=== PATIENT | female | born 1995 | race Caucasian/White ===

== ENCOUNTER 2022-06-24 06:58 | Inpatient (IN) | payer MEDICAID ==
[~2022-06-24] VITALS: Ht 162.6 cm; Wt 75.3 kg
[2022-06-24] MEDS ORDERED: FISH GT (07:43)
[2022-06-24] MEDS ORDERED: PREN-176 PO (07:43)
[2022-06-24] MEDS ORDERED: CALC-1042 PO (07:43)
[2022-06-24] MEDS ORDERED: FERR-71 PO (07:43)
[2022-06-24] MEDS ORDERED: METHYLERGONOVINE MALEATE 0.2 MG/ML IM PRN (08:00)
[2022-06-24] MEDS ORDERED: NALOXONE HCL 0.4 MG/ML 1ML VIAL IM PRN (08:00)
[2022-06-24] MEDS ORDERED: BUTORPHANOL TARTRATE 2 MG/ML VIAL IV PRN (08:00)
[2022-06-24] MEDS ORDERED: LIDOCAINE HCL 1% 20ML VIAL (Pyxis) INJ INFIL SCH (08:00)
[2022-06-24] MEDS ORDERED: LACTATED RINGERS 1,000 ML IV SCH (08:00)
[2022-06-24 08:48] LABS: BASOPHILS % 0.2 % (0.0-2.0); CLARITY URINE CLEAR (CLEAR); COLOR URINE YELLOW (YELLOW); EOSINOPHILS % 0.2 % (0.0-5.0); HEMATOCRIT. 35.3 % (36.0-48.0); HEMOGLOBIN. 11.8 g/dL (12.0-16.0); KETONES URINE TRACE (NEGATIVE); LEUKOCYTE ESTERASE URINE NEGATIVE (NEGATIVE); LYMPHOCYTES % 11.3 % (20.0-50.0); MEAN CORPUSCULAR HEMOGLOBIN 29.8 pg (28.0-32.0); MEAN CORPUSCULAR VOLUME 88.9 fL (81.0-99.0); MEAN PLATELET VOLUME 8.3 fl (7.4-10.4); MONOCYTES % 3.9 % (2.0-8.0); NEUTROPHILS % 84.4 % (40.0-76.0); NITRITE URINE NEGATIVE (NEGATIVE); OCCULT BLOOD URINE 2+ (NEGATIVE); PH URINE 7.5 (4.5-8.0); PLATELET 274 x1000/uL (130-400); PROTEIN URINE TRACE (NEGATIVE); RED BLOOD CELL COUNT 3.96 mill/uL (4.2-5.4); RED CELL DISTRIBUTION WIDTH 14.2 % (11.6-14.6); SPECIFIC GRAVITY URINE 1.021 (1.005-1.030); UROBILINOGEN URINE 0.2 E.U./dL (0.2-1.0)
[2022-06-24 08:58] LABS: INR 0.9; PARTIAL THROMBOPLASTIN TIME 27.8 sec (23.4-31.0); PROTHROMBIN TIME 9.7 sec (9.6-11.0)
[2022-06-24 09:01] LABS: *AMPHETAMINES SCREEN URINE NEGATIVE (NEGATIVE); *BARBITURATES SCREEN URINE NEGATIVE (NEGATIVE); *BENZODIAZEPINES SCREEN URINE NEGATIVE (NEGATIVE); *COCAINE SCREEN URINE NEGATIVE (NEGATIVE); CANNABINOID URINE SCREEN NEGATIVE (NEGATIVE); METHADONE URINE SCREEN NEGATIVE (NEGATIVE); OPIATES URINE SCREEN NEGATIVE (NEGATIVE); PHENCYCLIDINE URINE SCREEN NEGATIVE (NEGATIVE)
[2022-06-24 09:31] LABS: HEPATITIS B SURFACE ANTIGEN NEGATIVE
[2022-06-24] MEDS: OXYTOCIN 30 UNITS/500ML NS PMX 500 ML IV SCH ×2 (09:32→10:24)
[2022-06-24] MEDS ORDERED: BENZOCAINE/LANOLIN/ALOE VERA SPRAY TOP PRN (10:15)
[2022-06-24] MEDS ORDERED: IBUPROFEN 800MG TABLET PO PRN (10:15)
[2022-06-24] MEDS ORDERED: IBUPROFEN 400MG TABLET PO PRN (10:15)
[2022-06-24 11:00] VITALS: BP 101/62
[2022-06-24 11:30] VITALS: BP 92/65
[2022-06-24 19:30] VITALS: BP 90/55
[2022-06-24] MEDS: FERROUS SULFATE 325MG TABLET PO SCH (20:00)
[2022-06-25 03:30] VITALS: BP 100/48
[2022-06-25 08:00] VITALS: BP 102/64
[2022-06-25] MEDS: FERROUS SULFATE 325MG TABLET PO SCH (08:14)
[2022-06-25] MEDS ORDERED: PRENATAL VIT/FE FUMARATE/FA TABLET PO SCH (09:00)
[2022-06-25 10:14] LABS: BASOPHILS % 0.2 % (0.0-2.0); EOSINOPHILS % 0.6 % (0.0-5.0); HEMATOCRIT. 32.4 % (36.0-48.0); HEMOGLOBIN. 10.7 g/dL (12.0-16.0); MEAN CORPUSCULAR HEMOGLOBIN 29.7 pg (28.0-32.0); MEAN CORPUSCULAR VOLUME 90.3 fL (81.0-99.0); MEAN PLATELET VOLUME 7.9 fl (7.4-10.4); MONOCYTES % 6.4 % (2.0-8.0); NEUTROPHILS % 73.8 % (40.0-76.0); PLATELET 275 x1000/uL (130-400); RED BLOOD CELL COUNT 3.59 mill/uL (4.2-5.4); RED CELL DISTRIBUTION WIDTH 14.3 % (11.6-14.6)
[2022-06-25 16:00] VITALS: BP 94/54
[2022-06-25 20:32] VITALS: BP 100/59
[2022-06-26 01:16] VITALS: BP 120/57
[2022-06-26] MEDS ORDERED: IBUP-2030 PO (04:25)
[2022-06-26 07:30] VITALS: BP 100/63
== END 2022-06-26 12:00 | disposition home or self-care (01) | DRG 560 ==
LOC: OBSVTOIN 06:58 → 8 EST LDRP 06:58 → INTOOBSV 06:58 → 8EST 10:55
PROVIDERS: ADMIT Obstetrics & Gynecology; ATTEND Obstetrics & Gynecology
PROC: 10E0XZZ Delivery of Products of Conception, External Approach (ICD-10-PCS; principal; 2022-06-24)
PROC: 0HQ9XZZ Repair Perineum Skin, External Approach (ICD-10-PCS; 2022-06-24)
DX: O48.0 Post-term pregnancy (principal); Z37.0 Single live birth; O69.1XX0 Labor and delivery complicated by cord around neck, with compression, not applicable or unspecified; O70.0 First degree perineal laceration during delivery; Z20.822 Contact with and (suspected) exposure to COVID-19; Z3A.39 39 weeks gestation of pregnancy
CPT/HCPCS: 36415; 76805; 80305; 81003; 85025; 86592; 86703; 86762; 86850; 86900; 87340; 87426; 99281; J3490; J2590

== ENCOUNTER 2025-09-05 20:31 | Emergency (ER) | payer MEDICAID, OTHER ==
[~2025-09-05] VITALS: Ht 162.6 cm; Wt 65.0 kg
[~2025-09-05 20:31] MED LIST: CALC-1042 PO; FERR-71 PO; FISH GT; IBUP-2030 PO; PREN-176 PO
[2025-09-05 20:35] VITALS: O2SAT 98
[2025-09-05] MEDS: TETANUS, DIPHTHERIA, PERTUSSIS VAC/PF 0.5ML (>10YR OLD) IM ONE (21:46)
[2025-09-05] MEDS: LIDOCAINE HCL/EPINEPHRINE 1%-EPI 1:100,000 20ML VIAL INFIL ONE (21:47)
[2025-09-05 21:48] VITALS: BP 111/74; PULSE 71; RESP 19; TEMP 36.9; O2SAT 100
== END 2025-09-05 21:59 | disposition home or self-care (01) ==
LOC: ER 20:58
DX: S01.81XA Laceration without foreign body of other part of head, initial encounter (principal); S09.90XA Unspecified injury of head, initial encounter; Z79.899 Other long term (current) drug therapy; W01.0XXA Fall on same level from slipping, tripping and stumbling without subsequent striking against object, initial encounter; Y93.89 Activity, other specified; Y92.480 Sidewalk as the place of occurrence of the external cause; Y99.8 Other external cause status
CPT/HCPCS: 90715; 12011; 90471; 99283; J2004; Z7610

== ENCOUNTER 2025-09-13 19:36 | Emergency (ER) | payer MEDICAID, OTHER ==
[~2025-09-13] VITALS: Ht 162.6 cm; Wt 64.0 kg
[2025-09-13 19:57] VITALS: TEMP 36.9; O2SAT 100
[2025-09-13 20:23] VITALS: BP 121/56; PULSE 60; RESP 14; O2SAT 100
== END 2025-09-13 20:25 | disposition home or self-care (01) ==
LOC: ER 19:46
DX: S01.81XD Laceration without foreign body of other part of head, subsequent encounter (principal); Z79.899 Other long term (current) drug therapy; X58.XXXD Exposure to other specified factors, subsequent encounter
CPT/HCPCS: 99282

== ENCOUNTER → 2025-09-18 | Emergency (ER) | payer MEDICAID | LOC: ER 14:47 | DX: Z00.8 Encounter for other general examination (principal); Z53.21 Procedure and treatment not carried out due to patient leaving prior to being seen by health care provider ==